=== PATIENT | female | born 1985 | race Caucasian/White ===

== ENCOUNTER 2024-03-21 19:20 | Emergency (ER) | payer MEDICAID ==
[~2024-03-21] VITALS: Ht 170.2 cm; Wt 93.4 kg
[2024-03-21 19:26] VITALS: BP 132/56; PULSE 80; RESP 20; TEMP 99; O2SAT 99
[2024-03-21 21:10] LABS: FLU A ANTIGEN NEGATIVE (NEGATIVE); FLU B ANTIGEN NEGATIVE (NEGATIVE)
[2024-03-21] MEDS ORDERED: OXYM20SP1 NS (21:18)
[2024-03-21] MEDS ORDERED: BENZ200C4 PO (21:18)
[2024-03-21] MEDS ORDERED: ALBU0.0912 IH (21:18)
[2024-03-21] MEDS ORDERED: BENZ-300 PO (21:18)
[2024-03-21 21:36] VITALS: BP 116/76; PULSE 78; RESP 15; TEMP 98.8; O2SAT 97
== END 2024-03-21 21:37 | disposition home or self-care (01) ==
LOC: MED 19:20
DX: J06.9 Acute upper respiratory infection, unspecified (principal); B97.89 Other viral agents as the cause of diseases classified elsewhere; Z20.822 Contact with and (suspected) exposure to COVID-19; Z79.899 Other long term (current) drug therapy
CPT/HCPCS: 71045; 87426; 87804; 99284; Q0092